=== PATIENT | male | born 1935 | race Caucasian/White ===

== ENCOUNTER 2024-12-27 23:51 | Inpatient (IN) | payer BC ==
[~2024-12-27] VITALS: Ht 167.6 cm; Wt 65.2 kg
--- NOTE | 2024-12-27 23:55 | Physician Documentation ---
History of Present Illness ~ Stated Complaint: STROKE Time Seen by MD: 23:54 HPI Patient presents to the emergency room with acute onset altered mental status and unsteady gait. Last time normal 2129. Patient with history of diabetes but has not been taking his medications. No blood thinners. Medication Reconciliation Allergies: Coded Allergies: No Known Allergies (Unverified , 12/27/24) Miscellaneous Medications Home Med List (No Home Medications), (Reported) Review of Systems ROS All review of systems negative except as per HPI Physical Exam Physical Exam General: Patient is awake, alert, oriented x 3. Anxious Head: Normocephalic and atraumatic. Eyes: Conjunctival normal. EOMI. PERRL. ENT: Mucous membranes moist. Neck: Supple, trachea is midline. Chest: Clear to auscultation bilaterally without rales, rhonchi, or wheezes. There is no accessory muscle use or retractions. Cardiac: RRR without murmurs, gallops, or rubs. Abd: Soft, nondistended, nontender, with normoactive bowel sounds. No guarding, rebound, or rigidity. Neuro: Cranial nerves II-XII grossly intact. No focal neuro deficits. Unsteady gait with positive Romberg Progress Results/Orders Results/Orders Orders - SYLVAIN COOLEY MD Electrocardiogram (12/27/24 23:56) Urinalysis, Cult If Indicated (12/27/24 23:56) * Vital Signs Routine* [id number] (12/27/24 23:56) * Blood Glucose Assessment * ONCE (12/27/24 23:56) * Npo Until Passed Bedside Swa (12/27/24 23:56) Nursing Swallow Screen (12/27/24 23:56) Ct Stroke Alert (12/28/24 00:00) Cta Neck/Head (12/28/24 00:30) Chest,Single View (12/28/24 00:00) Completed Orders - SYLVAIN COOLEY MD Cbc/Diff (12/27/24 23:56) BMP (12/27/24 23:56) Pt Inr (12/27/24 23:56) PTT (12/27/24 23:56) Type And Screen (12/27/24 23:56) Iohexol 350mg/Ml 100ml (Omnipaque 350mg/ (12/27/24 23:57) Ct Stroke Alert (12/28/24 00:00) Cta Neck/Head (12/28/24 00:30) Chest,Single View (12/28/24 00:00) Vital Signs 12/27/24 12/28/24 12/28/24 23:56 00:01 00:26 Temp 96.5 Pulse 62 67 Resp 17 14 B/P (MAP) 175/71 142/75 (97) Pulse Ox 98 98 97 O2 Delivery Room Air* O2 Flow Rate 0 0 FiO2 21 Laboratory Tests Test 12/27/24 23:53 White Blood Count 7.3 Red Blood Count 4.27 L Hemoglobin 14.3 Hematocrit 41.9 L Mean Corpuscular Volume 98.1 H Mean Corpuscular Hemoglobin 33.5 H Mean Corpuscular Hemoglobin Concent 34.1 Red Cell Distribution Width 13.5 Platelet Count 175 Mean Platelet Volume 8.4 Neutrophils (%) (Auto) 54.2 Lymphocytes (%) (Auto) 31.8 Monocytes (%) (Auto) 12.4 H Eosinophils (%) (Auto) 1.1 Basophils (%) (Auto) 0.5 Neutrophils # (Auto) 4.0 Lymphocytes # (Auto) 2.3 Monocytes # (Auto) 0.9 Eosinophils # (Auto) 0.1 Basophils # (Auto) 0.0 CBC Comment Prothrombin Time 10.5 INR International Normalized Ratio 1.0 Activated Partial Thromboplast Time 27 Coagulation Comments Sodium Level 141 Potassium Level 3.9 Chloride Level 104 Carbon Dioxide Level 27.6 Anion Gap 9 Blood Urea Nitrogen 19 H Creatinine 1.51 H Estimated GFR/1.73 m2 44 BUN/Creatinine Ratio 12.6 Glucose Level 229 H Calcium Level 9.1 Albumin 3.8 Chemistry Comments EKG/XRAY/CT/US/VASC/MRI EKG : Additional Comment EKG interpreted by myself shows time of 0017, rate 70, sinus rhythm, normal axis, no ST changes Medical Decision Making Findings Patient presented to the emergency room for evaluation of confusion and unsteady gait. Differentials include but are not limited to stroke, panic attack, metabolic encephalopathy, cardiac arrhythmia therefore emergent labs and imaging indicated. CT scans are reassuring and patient's symptoms have greatly improved. Tele neurology consulted recommends admission. No TNK Departure Admitted to Inpatient Unit: yes, to hospitalist Impression: Primary Impression: Possible stroke Condition: Guarded Referrals: NO PRIMARY CARE PROVIDER (PCP) Critical Care Note Total Time (mins): 45 Critical Care Note The very real possibility of a deterioration of this patient's condition required the highest level of my preparedness for sudden, emergent intervention. I provided critical care services, which included medication orders, frequent r eevaluations of the patient's condition and response to treatment, ordering and reviewing test results, and discussing the case with various consultants. Excludes time spent performing separately billable procedures. The critical care time associated with the care of the patient was 45 minutes not counting procedures Signature Scribe Signature: No scribe Attestation: The note accurately reflects work and decisions made by me.Sylvain Coolye MD 12/28/24 01:02 SYLVAIN COOLEY MD Dec 27, 2024 23:55
[2024-12-27] MEDS ORDERED: iohexol 350MG/ML 100ml bottle IV ONE (23:57)
[2024-12-28] VITALS (7 sets, daily range): BP systolic 115–134; BP diastolic 53–90; PULSE 60–66; RESP 12–16; TEMP 97.3–98.3; O2SAT 97–99
[2024-12-28] MEDS ORDERED: NO HOME MEDS (00:04)
[2024-12-28 00:10] LABS: ALBUMIN 3.8 G/DL (3.4-5.0); ANION GAP 9 (8-16); BLOOD UREA NITROGEN 19 MG/DL (7-18); BUN/CREATININE RATIO 12.6 (10.0-20.0); CALCIUM 9.1 MG/DL (8.5-10.1); CHLORIDE 104 MMOL/L (99-107); CREATININE 1.51 MG/DL (0.60-1.10); GLUCOSE 229 MG/DL (70-104); POTASSIUM 3.9 MMOL/L (3.5-5.1); SODIUM 141 MMOL/L (135-145); TOTAL CARBON DIOXIDE 27.6 MMOL/L (24-32); eCRCL 33 ML/MIN; eGFR 44 ML/MIN
[2024-12-28 00:15] LABS: APTT 27 SECONDS (22-32); PROTHROMBIN TIME 10.5 SECONDS (9.0-12.0)
[2024-12-28 00:17] LABS: BASOPHILS % (AUTO) 0.5 % (0-1); EOSINOPHILS # (AUTO) 0.1 X10'3 (0-0.9); EOSINOPHILS % (AUTO) 1.1 % (0-6); HEMATOCRIT 41.9 % (42.0-52.0); HEMOGLOBIN 14.3 g/dl (14.0-17.9); LYMPHOCYTES # (AUTO) 2.3 X10'3 (1.1-4.8); LYMPHOCYTES % (AUTO) 31.8 % (21-51); MEAN CORPUSCULAR HEMOGLOBIN 33.5 PG (27.0-31.0); MEAN CORPUSCULAR HGB CONC 34.1 g/dL (33.0-36.5); MEAN CORPUSCULAR VOLUME 98.1 FL (78-98); MEAN PLATELET VOLUME 8.4 FL (7.4-10.4); MONOCYTES # (AUTO) 0.9 X10'3 (0-0.9); MONOCYTES % (AUTO) 12.4 % (2-12); NEUTROPHILS % (AUTO) 54.2 % (42-75); PLATELET COUNT 175 X10'3 (140-440); RED BLOOD COUNT 4.27 X10'6 (4.70-6.10); RED CELL DISTRIBUTION WIDTH 13.5 % (11.5-14.5); WHITE BLOOD COUNT 7.3 X10'3 (4.5-11.0)
--- NOTE | 2024-12-28 00:28 | RADIOLOGY REPORT ---
EXAM: CT CT STROKE ALERT INDICATION: ams TECHNIQUE: CT of the head without intravenous contrast. Radiation Dose : 1. Head: CT Dose: CTDI volume is 55 mGy. Dose-length product is 1081 mGy*cm The dose indicators for CT are the volume Computed Tomography (CT) Dose Index (CTDIvol) and the Dose Length Product (DLP), and are measured in units of mGy and mGy-cm, respectively. These indicators are not patient dose, but values generated from the CT scanner acquisition factors. The report includes radiation exposure data for exposures received during this examination. COMPARISON: None FINDINGS: There is no evidence of acute intracranial hemorrhage, extra-axial collection, mass effect, midline s hift, herniation or hydrocephalus. The ventricles, sulci and cisterns are age appropriate. The chadwick-white differentiation is intact. Patchy periventricular and subcortical white matter hypoattenuation is nonspecific but may be related to small vessel ischemic disease. The visualized paranasal sinuses and mastoid air cells are clear. The surrounding soft tissues and osseous structures are unremarkable. IMPRESSION: No acute intracranial abnormality. If there is high clinical concern for acute infarct consider furth er evaluation with MRI.
--- NOTE | 2024-12-28 00:33 | RADIOLOGY REPORT ---
INDICATION: ams EXAM DATE: 12/28/2024 12:00 AM COMPARISON: None TECHNIQUE: CTA head without and with intravenous contrast. CTA neck with intravenous contrast. 3D image postprocessing was performed on a dedicated workstation and images were used for interpretation and reporting. RADIATION DOSE: CTDIvol: 50 mGy, DLP: 531 mGy*cm FINDINGS: CT head: There is no evidence of acute intracranial hemorrhage, extra-axial collection, mass effect, midline s hift, herniation or hydrocephalus. The ventricles, sulci and cisterns are age appropriate. The chadwick -white differentiation is intact. The visualized paranasal sinuses and mastoid air cells are clear. The surrounding soft tissues and osseous structures are unremarkable. CTA head: There is normal enhancement of the visualized distal internal carotid, anterior and middle cerebral a rteries. There is a normal anterior communicating artery complex. There are bilateral posterior com municating arteries. The vertebral, basilar, cerebellar and posterior cerebral arteries are within n ormal limits. The early parenchymal enhancement is grossly unremarkable. The visualized intracrania l venous structures are grossly unremarkable. CTA neck: The visualized thoracic aortic arch and proximal great vessels are unremarkable. The left common, in ternal and external carotid arteries are within normal limits. The right common, internal and blockman al carotid arteries are within normal limits. The cervical segments of the right and left vertebral arteries are within normal limits. The limited visualized lung apices are clear. The surrounding so ft tissues and osseous structures are otherwise unremarkable. IMPRESSION: No evidence of hemodynamically significant intracranial stenosis, proximal occlusion or aneurysm. No evidence of hemodynamically significant cervical stenosis or dissection. CAROTID STENOSIS REFERENCE Distal internal carotid artery diameter as the denominator for stenosis measurement: MILD = <50% stenosis. MODERATE = 50-69% stenosis. SEVERE = 70-89% stenosis. CRITICAL = 90-99% stenosis. OCCLUDED = 100% stenosis.
--- NOTE | 2024-12-28 00:36 | RADIOLOGY REPORT ---
CHEST RADIOGRAPH Indication: Stroke Alert Technique: Single frontal view of the chest was obtained Comparison: None FINDINGS: Lines and Tubes: None Lungs: Clear Pleura: No effusion. No pneumothorax. Cardiomediastinal contours: Unremarkable Bones: Unremarkable IMPRESSION: Clear lungs.
--- NOTE | 2024-12-28 00:39 | [facility]SULT REPORT ---
[facility] Procedure Note [facility] Procedure Note Consult [facility] Note # Demographics Consult Type: Acute Stroke Level 1 (0-4.5 hrs) Patient Location: Emergency Room First Name: WALYON Last Name: OTF Date of : 1935 Age: 89 Gender: Male Facility: [facility] Time of Initial Page (): 12/27/2024 23:54 Time of Return Call (): 12/27/2024 23:54 # HPI History: [id number] Patient is coming to ER for confusion and altered mental status and walking difficulty. Patient was watching TV at home after dinner and started feeling dizzy and was unsteady on his feet. H/O DM. # Scores Time of exam and NIHSS (): 12/28/2024 00:27 Level of Consciousness 1a: [0] = Alert; keenly responsive LOC Questions 1b: [0] = Answers both questions correctly LOC Commands 1c: [0] = Performs both tasks correctly Best Gaze 2: [0] = Normal Visual 3: [0] = No visual loss Facial Palsy 4: [0] = Normal symmetrical movements Motor Arm Left 5a: [0] = No drift Motor Arm Right 5b: [0] = No drift Motor Leg Left 6a: [0] = No drift Motor Leg Right 6b: [0] = No drift Limb Ataxia 7: [0] = Absent Sensory 8: [0] = Normal Best Language 9: [0] = No aphasia Dysarthria 10: [0] = Normal Extinction and Inattention 11: [0] = No abnormality NIHSS Total: 0 # Assessment Impression: - Vertigo - Ischemic Stroke (Acute) NIHSS is 0; differential include peripheral vs central etiology. Will need MRI brain to rule out stroke # Plan Thrombolytic/Intervention: NOT IV Thrombolysis or IA Intervention candidate Thrombolytic Exclusion: > 4.5 hours Intraarterial Exclusion: - no large vessel occlusion (LVO) Thrombolytic/Intraarterial Exclusion: - IV thrombolytic and IA intervention considered but not recommended as this patient's symptoms are not clinically consistent with an assumed diagnosis of stroke Target Blood Pressure: - SBP < 180 - SBP > 140 Labs: - comprehensive metabolic panel - CBC - urine drug screen - ua - ESR - hemoglobin A1c - lipid panel Imaging: (urgency: routine): - MRI Brain without contrast Diagnostic Test: - echo without bubble study Therapy/Evaluation: - PT/OT evaluation - NPO until swallow evaluation -If brain MRI is negative for stroke- consider godwin-hallpike maneuver Medication: - aspirin 81 mg PLUS clopidogrel (Plavix) 75 mg for 21 days, then monotherapy therafter - start statin with goal of LDL < 70 PRN meclizine Other: - If patient has any neurological deterioration please call me back immediately - I have discussed my recommendations with the referring provider - neurology referral as outpatient - would not pursue stroke work-up if MRI is negative - telemetry monitoring - permissive hypertension - LDL < 70 - will need event monitor or loop recorder as outpatient if atrial fibrillation not found as inpatient Disposition: admit # Demographics First Name: WAYLON Last Name: OTF Facility: [facility] Neuro Consult Order placed for: Yes JEFFERY WASHINGTON MD Dec 28, 2024 00:39
[2024-12-28 01:06] LABS: BILIRUBIN,URINE NEGATIVE (Neg); CLARITY,URINE CLEAR (Clear); COLOR,URINE YELLOW (Yellow); GLUCOSE, URINE 250 mg/dl (Neg); KETONES,URINE NEGATIVE (Neg); LEUKOCYTE ESTERASE ,URINE NEGATIVE (Neg); NITRITES, URINE NEGATIVE (Neg); OCCULT BLOOD,URINE NEGATIVE (Neg); PROTEIN,URINE NEGATIVE (Neg); UROBILINOGEN,URINE 0.2 E.U/dL (0.2-1.0)
[2024-12-28 01:07] LABS: UA COLLECTION TYPE NON-SPECIFIED
[2024-12-28] MEDS ORDERED: potassium Cl 40MEQ/1/2NS 520ml 520 ML IV PRN (01:35)
[2024-12-28] MEDS ORDERED: morphine 2 MG/ML inj. syringe IV PRN (01:35)
[2024-12-28] MEDS: PERFLUTREN PROTEIN-A MICROSPHR (Optison) 0.22 MG/ML 3ML VIAL IV ONE (01:35)
[2024-12-28] MEDS ORDERED: mag hydrox/Alum hydrox/simeth 30ml oral suspension PO PRN (01:35)
[2024-12-28] MEDS ORDERED: magnesium sulf-water 2g/50mL 50 ML IV PRN (01:35)
[2024-12-28] MEDS ORDERED: acetaminophen 325mg tablet PO PRN (01:35)
[2024-12-28] MEDS ORDERED: magnesium hydroxide 30ml (MOM) UD suspension PO PRN (01:35)
[2024-12-28] MEDS ORDERED: magnesium Cl slow-release 64mg tablet PO PRN (01:35)
[2024-12-28] MEDS ORDERED: HYDROcodone/acetaminophen 5mg/325mg tablet PO PRN (01:35)
[2024-12-28] MEDS ORDERED: potassium Cl 20 mEq SR tablet PO PRN ×2 (01:35)
[2024-12-28] MEDS ORDERED: magnesium sulf-water 4G/100mL 100 ML IV PRN (01:35)
--- NOTE | 2024-12-28 01:49 | HISTORY AND PHYSICAL-Residence ---
History & Physical Providers to CC Resident Creating Document: GEORGIE JACINTO, RES CC: ARNOLDO DENT MD ~ History of Present Illness Reason for Admit\Complaint: Dizziness and difficulty walking History of Present Illness An 89-year-old male with past medical history of type 2 diabetes mellitus was brought in by the EMS due to acute onset of confusion, wobbly and unable to walk. Patient states that he was watching TV after dinner and about after an hour he started feeling dizzy, informed his son. The son reported as the patient is started to behave weird and had confusion, was forgetful. Patient tried to walk and was about to fall. Patient states he had a soreness in his neck muscles but denies headache, nausea, vomitings, difficulty in vision or swallowing. Patient did not lose consciousness Allergies: Coded Allergies: No Known Allergies (Unverified , 12/27/24) Home Medications Home Medications Active Reported No Home Medications (Home Med List) Each Past Medical History Past Medical History Type 2 diabetes mellitus Past Surgical History Surgical History Comment Cholecystectomy Past Social History Social History Comment Patient lives at home with his son Primary care doctor is [facility] Drinks beer once in a while Does not smoke tobacco, illicit drugs or marijuana ROS ROS All other systems reviewed in full and negative except for the pertinent positives mentioned in the HPI Exam Vitals: Vital Signs Date Time Temp Pulse Resp B/P (MAP) Pulse Ox O2 Delivery O2 Flow Rate FiO2 12/28/24 00:26 67 14 142/75 (97) 97 0 12/28/24 00:01 Room Air* 21 12/27/24 23:56 96.5 General: General: Alert, awake, oriented, not in acute distress HEENT: PERRLA, EOMI, no icterus, pallor, lymphadenopathy, carotid bruit, very hard of hearing Respiratory system: Bilateral vesicular breath sounds heard, no adventitious breath sounds CVS: S1-S2 heard, no murmurs/rubs/gallop GI: A surgical scar present diagonally on the right hypochondrial region, a linear scar present in the lower abdomen, Soft, nontender, no organomegaly, no guarding/rigidity, bowel sounds present Neuro: Cranial nerves intact, power of upper and lower extremities 4/5, no sensory deficit, coordination intact, gait could not be elicited Extremities: No edema cyanosis clubbing/deformities Skin: Warm and dry Diagnostic Data Last Recorded Lab Results: 12/27/24 2353 12/27/24 2353 Diagnostic Data: Laboratory Tests Test 12/27/24 23:53 Prothrombin Time 10.5 SECONDS (9.0-12.0) INR International Normalized Ratio 1.0 INR Activated Partial Thromboplast Time 27 SECONDS (22-32) Coagulation Comments Advance Care Planning Advanced Care plannin - 30 Minutes (I spent 20 minutes discussing various resuscitative measures and the patient decided to be full code) Additional Plan Assessment: A 72-year-old male with a past medical history of type 2 diabetes mellitus was brought in by the EMS after he has son observed him with the acute onset of confusion, unable to walk and feeling wobbly in the last 2 hours. Patient is admitted for the evaluation management of CVA versus TIA versus vertigo. Plan: TIA versus vertigo CVA, rule out NIHSS: 0 CT head: small vessel ischemic disease. CTA head/neck: No evidence of hemodynamically significant intracranial stenosis, proximal occlusion or aneurysm. No evidence of hemodynamically significant cervical stenosis or dissection. Follow up with MRI brain, lipid panel, A1c, echo Patient given one dose of aspirin 325 mg, followed by aspirin 81 mg daily from tomorrow, clopidogrel 75 mg daily tomorrow (ASA plus clopidogrel: End date: 01/17/2025), atorvastatin 40 mg daily Permissive hypertension: SBP less than 180, greater than 140 for 48 hours Continue to monitor telemetry Aspiration precautions, NPO until swallow evaluation PT eval and treat Neuro check Tele neurology consulted and recommended as per above, appreciate recommendations Follow up with U tox Prerenal LUCILLE probably secondary to renal tubular stasis Elevated creatinine Continue IV fluids at 100 cc/hour Continue to monitor BMP Type 2 DM Follow up with A1c Low-dose sliding scale insulin Code status: Full code Diet: NPO until swallow eval DVT prophylaxis: Heparin 5000 subcu Disposition: Admit to neuro, follow up with echo, MRI brain, U tox, continue to monitor telemetry Georgie Jacinto MD Internal Medicine, PGY 1 Date of Service: Dec 28, 2024 Billing Provider: ARNOLDO DENT MD, SIVA, RES Dec 28, 2024 01:49
[2024-12-28] MEDS: normal saline 1000ml 1,000 ML IV SCH (02:29)
[2024-12-28 02:35] LABS: URINE AMPHETAMINE SCREEN NEGATIVE (Neg); URINE BARBITUATE SCREEN NEGATIVE (Neg); URINE BENZODIAZEPINES SCREEN NEGATIVE (Neg); URINE CANNABINOID SCREEN NEGATIVE (Neg); URINE COCAINE SCREEN NEGATIVE (Neg); URINE METHADONE SCREEN NEGATIVE (Neg); URINE OPIATE SCREEN NEGATIVE (Neg); URINE PHENCYCLIDINE SCREEN NEGATIVE (Neg)
[2024-12-28 07:21] LABS: HEMOGLOBIN A1C 7.6 % (4.5-6.2)
[2024-12-28] MEDS: clopidogrel 75mg tablet PO SCH (07:29)
[2024-12-28] MEDS: aspirin 81mg, enteric-coated 1 TAB TABLET.DR PO SCH (07:29)
[2024-12-28] MEDS: atorvastatin 20mg tablet PO SCH (07:29)
[2024-12-28 07:33] LABS: MAGNESIUM 2.2 MG/DL (1.5-2.4)
[2024-12-28] MEDS: docusate sod 100mg capsule PO SCH (07:33)
[2024-12-28 07:38] LABS: POTASSIUM 4.4 MMOL/L (3.5-5.1)
[2024-12-28] MEDS: K and/or MAG REPLACEMENT MC SCH (08:00)
--- NOTE | 2024-12-28 08:02 | ELECTROCARDIOGRAPH REPORT ---
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 Jacob Rocha Measurements Intervals Withams Rate: 70 P: 62 SD: 166 QRS: 67 QRSD: 90 T: 35 QT: 402 QTc: 434 Interpretive Statements Sinus rhythm Borderline T wave abnormalities Electronically Signed On 12-28-2024 11:29:[address] Jacob Rocha Please click the below link to view image of tracing.
--- NOTE | 2024-12-28 08:36 | RADIOLOGY REPORT ---
MRI BRAIN WITHOUT CONTRAST CLINICAL HISTORY: cva TECHNIQUE: Multiplanar, multisequence MR images of the brain without intravenous contrast. Comparison: CTA head 12/28/2024 FINDINGS: There is no restricted diffusion. There is age concordant parenchymal volume loss. There are mild chr onic small-vessel periventricular white matter ischemic changes. There is no evidence of hemorrhage, mass, mass effect or midline shift. There is no hydrocephalus or extra-axial fluid collection. The vi sualized intracranial vasculature demonstrates appropriate flow-voids. The sagittal midline structure s appear unremarkable. The craniocervical junction is within normal limits. The calvarium demonstrate s normal marrow signal. The paranasal sinuses and mastoid air cells are clear. IMPRESSION: 1. There is no acute intracranial process. HS:Y
[2024-12-28] MEDS ORDERED: dextrose 50%-water 50ml dispensing syringe IV PRN ×2 (08:50)
[2024-12-28] MEDS ORDERED: glucagon, human recombinant 1mg kit SUBCUT PRN (08:50)
[2024-12-28] MEDS ORDERED: DEXTROSE 15 GM of carb/4 tabs (each vial/BOTTLE has 4 tablets) PO PRN ×2 (08:50)
[2024-12-28] MEDS: INSULIN LISPRO 100 UNIT/ML INSULN.PEN MULTI-DOSE SQ SCH (12:00)
[2024-12-28 13:28] LABS: CHOLESTEROL 181 MG/DL (0-200); HDL CHOLESTEROL 36 MG/DL (35-60); LDL CHOLESTEROL 120 MG/DL (50-100); THYROID STIMULATING HORMONE 3.85 ulU/ml (0.34-4.50); TRIGLYCERIDES 152 MG/DL (20-135)
[2024-12-29] VITALS (7 sets, daily range): BP systolic 115–173; BP diastolic 52–91; PULSE 65–76; RESP 12–20; TEMP 97.5–97.8; O2SAT 97–99
[2024-12-29] MEDS: acetaminophen 325mg tablet PO PRN (02:34)
[2024-12-29] MEDS: ondansetron/PF 4mg/2ml inj IV PRN (03:05)
[2024-12-29 06:26] LABS: BASOPHILS % (AUTO) 0.3 % (0-1); EOSINOPHILS % (AUTO) 0.3 % (0-6); HEMATOCRIT 38.4 % (42.0-52.0); HEMOGLOBIN 12.9 g/dl (14.0-17.9); LYMPHOCYTES # (AUTO) 1.2 X10'3 (1.1-4.8); LYMPHOCYTES % (AUTO) 13.4 % (21-51); MEAN CORPUSCULAR HEMOGLOBIN 33.1 PG (27.0-31.0); MEAN CORPUSCULAR HGB CONC 33.6 g/dL (33.0-36.5); MEAN CORPUSCULAR VOLUME 98.5 FL (78-98); MEAN PLATELET VOLUME 8.8 FL (7.4-10.4); MONOCYTES # (AUTO) 0.8 X10'3 (0-0.9); MONOCYTES % (AUTO) 9.3 % (2-12); NEUTROPHILS # (AUTO) 6.8 X10'3 (1.8-7.7); NEUTROPHILS % (AUTO) 76.7 % (42-75); PLATELET COUNT 163 X10'3 (140-440); RED CELL DISTRIBUTION WIDTH 13.4 % (11.5-14.5); WHITE BLOOD COUNT 8.8 X10'3 (4.5-11.0)
[2024-12-29 06:49] LABS: ALBUMIN 3.1 G/DL (3.4-5.0); ANION GAP 8 (8-16); BLOOD UREA NITROGEN 16 MG/DL (7-18); CALCIUM 8.8 MG/DL (8.5-10.1); CHLORIDE 106 MMOL/L (99-107); CHOL/HDL RATIO 4.4 (0.00-4.99); CHOLESTEROL 169 MG/DL (0-200); CREATININE 1.23 MG/DL (0.60-1.10); GLUCOSE 175 MG/DL (70-104); HDL CHOLESTEROL 38 MG/DL (35-60); LDL CHOLESTEROL 111 MG/DL (50-100); MAGNESIUM 1.9 MG/DL (1.5-2.4); POTASSIUM 4.3 MMOL/L (3.5-5.1); SODIUM 141 MMOL/L (135-145); TOTAL CARBON DIOXIDE 26.8 MMOL/L (24-32); TRIGLYCERIDES 80 MG/DL (20-135); eCRCL 38 ML/MIN; eGFR 56 ML/MIN
[2024-12-29] MEDS ORDERED: atorvastatin 20mg tablet PO SCH (11:10)
[2024-12-29] MEDS: amLODIPine 5mg tablet PO SCH (11:10)
[2024-12-29] MEDS ORDERED: NOR5T PO (11:38)
[2024-12-29] MEDS ORDERED: ATOR40TA PO (11:40)
[2024-12-29] MEDS ORDERED: ASPI-1071 PO (14:21)
[2024-12-29] MEDS ORDERED: MECL-302 PO (14:21)
[2024-12-29] MEDS ORDERED: CLOP75TA34 PO (14:21)
--- NOTE | 2024-12-29 14:22 | DISCHARGE SUMMARY-Residence ---
Discharge Summary Providers to CC Resident Creating Document: YEHUDAANAY DIOR ~ Discharge Summary Admission Diagnosis: CVA/TIA under workup Hospital Course DATE OF ADMISSION: DATE OF DISCHARGE: Discharge Diagnosis\Comment: # acute metabolic encephalopathy, Ruled out CVA # LUCILLE-prerenal secondary to renal tubular stasis # type 2 DM Operations\Procedures: None Consultants: Ulices elkins tele neuro consultation Complications: None Condition on DC: Stable New Medications: Atorvastatin Calcium* (Lipitor*) 40 Mg Tablet 1 TAB PO DAILY for 30 Days, #30 TAB Meclizine HCl (Meclizine HCl) 25 Mg Tablet 1 TAB PO Q8H PRN for dizziness/vertigo for 30 Days, #90 TAB Amlodipine Besylate (Amlodipine Besylate) 5 Mg Tablet 5 MG PO DAILY for 30 Days, #30 TAB Aspirin (Ecotrin*) 81 Mg Tablet.dr 1 TAB PO DAILY for 30 Days, #30 TAB.SR Clopidogrel Bisulfate (Clopidogrel) 75 Mg Tablet 75 MG PO DAILY for 19 Days, #19 TAB stop after 01/17/25 Continued Medications: Home Med List (No Home Medications) Each Discharge Summary: A 72-year-old male with a past medical history of type 2 diabetes mellitus was brought in by the EMS after he has son observed him with the acute onset of confusion, unable to walk and feeling wobbly in the last 2 hours. Patient is admitted for the evaluation management of CVA versus TIA versus vertigo. Hospital course: Patient was admitted to the neurological floor for further investigation and management to ruled out CVA at the moment. Patient was given one time dose of aspirin 325 mg loading dose in ER followed by 81 mg daily along with clopidogrel 75 mg. Tele neurology consultation was requested, stated NIHSS score 0, needed to rule out for vertigo versus ischemic stroke with overdue for thrombolysis lactic exclusion time. 4.5 hours. We will maintain the patient's blood pressure with the permissive hypertension within 1st 24 hours followed by targeted blood pressure of SBP < 180 and >140. HGB A1c was 7.6 on 12/28/2024, LDL 111, TSH 3.85. Patient was monitor continuously with telemetry for the possible arrhythmia causing ischemic stroke, he was evaluated with PT/OT/swallow evaluation. Aspiration precautions and fall precautions were applied along with neuro check continuously in the neurological floor. Urine toxic screen are negative, RBS on admission was [address] without IV contrast on 12/28/2024 showed IMPRESSION: No acute intracranial abnormality. If there is high clinical concern for acute infarct consider further evaluation with MRI. Head and neck CTA with IV contrast on 12/28/2024 showed IMPRESSION: No evidence of hemodynamically significant intracranial stenosis, proximal occlusion or aneurysm. No evidence of hemodynamically significant cervical stenosis or dissection. Head MRI on 12/28/2024 showed There is no acute intracranial process. His 2D echocardiogram was done on 12/28/2024 stated that LVEF 65%, RVSP 43 mm Hg, LA normal, mild MR, TR, HI and no pericardial effusion. Today, all of his labs were reviewed WNL with WBC 8.8, hemoglobin 12.9, hematocrit 38.4, platelets 163, serum sodium 141, potassium 4.3, BUN 16, creatinine 1.23. All of his questions and concerns were addressed with the best knowledge of our team before discharge. All of the vitals were stable at the moment with temp 97.8 F, HI 69/minute, RR 18/minute, BP 127/91 mm Hg, pulse oximetry 99% on room air. On exam, General: Well alert, well oriented, not confused, not agitated, not in acute distress, well cooperated during the physical. HEENT: Conjunctive are pink, sclerae clear, no icterus, pupil is equal in both sides, reactive to light, no ear discharge, no pharyngeal erythema or an edema, mouth and lips are moist. Neck: Supple, no JVD, no lymphadenopathy and thyromegaly. Lungs:Equal air entry on both lungs, no additional sounds Heart: S1-S2 regular sinus rhythm and, regular rate, no gallops, no rubs, no murmurs Abdomen: No visible peristalsis, Bowel sounds present on auscultation, soft, nontender, no guarding, no rigidity Extremities: No obvious deformities, no pitting edema bilaterally, capillary refill intact, able to wiggle toes both sides, peripheral pulsations are intact on both sides CONFORMAL PAD FORMER: No focal neurological deficits, no motor and sensory weakness in all 4 extremities, could move all 4 extremities Musculoskeletal: No joint swelling, deformities, inflammations, and no scoliosis and back tenderness Skin: No active skin lesions and rashes Discharge summary: -return to ER for any emergency conditions including stroke-like symptoms example any new confusion, new focal neurologic deficits with tingling numbness and weakness in the extremities, facial asymmetry etc., passing out, progressive dizziness and lightheadedness etc. -set up and continue follow up with the PCP in 1-2 weeks after discharge for further management including lab checks (CBC CMP), BP control, medication adjustments, PT referral for the chronic neck pain with the imaging, Diabetes control w/ HbA1C 7.6 -recommended to visit [facility] center for the Vertigo evaluation and treatement with maneuver -medication compliance, report to PCP for any collateral effects of new medications amlodipine, atorvastatin etc. -compliance with blood pressure and blood glucose control -heart healthy diet with goal of LDL <70 to prevent further possible Stroke -stopped p.o. Plavix on 01/17/2025 Resident MD attestation: Patient was seen, examined and discussed with attending MD, Dr. Yoly BLACKMAN MD Internal Medicine Resident, PGY2 [facility] *Problems/Diagnosis: (1) Acute metabolic encephalopathy Status: Resolved Total Time Spent on D/C: > 30 Minutes Date of Service: Dec 29, 2024 Billing Provider: PATTI GEE MD, TIN, RES Dec 29, 2024 14:22
--- NOTE | 2024-12-30 17:01 | CARDIOLOGY REPORT ---
APPROVED REPORT EXAM: Comprehensive 2D, Doppler, and color-flow Echocardiogram. 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 124.1 cm/s AoV VTI 27.5 cm AO Peak GR. 6.2 mmHg AO Mean GR. 3 mmHg LVOT VTI 23.85 cm LVOT Peak Jorge. 96.5 cm/s DEMETRIUS(VTI)/BSA 2.72 cm2/m2 DEMETRIUS (VTI) 2.72 cm2 AI P 1/2 Time 508 ms Mitral Valve MV E Velocity 85.7 cm/s MV Peak Gr. 9 mmHg MV DECEL TIME 164 ms MV A Velocity 41.9 cm/s MV PHT 60 ms E/A Ratio 2.0 MVA (PHT) 3.67 cm2 MV AKib092.1 cm/s TDI Medial E' P. V 14.39 cm/s E/Medial E' 6.0 Tricuspid Valve TR P. Velocity 287 cm/s RAP ESTIMATE 10 mmHg TR Peak Gr. 33 mmHg RVSP 43 mmHg Pulmonary Vein S1 Velocity 39.5 cm/s D2 Velocity 56.3 cm/s PVa [id number] cm/s PVa [id number] msec LEFT VENTRICLE Normal LV size and wall thickness. Overall systolic function is normal. LVEF is 65%. RIGHT VENTRICLE RV is normal size and function. RVSP is estimated at 43 mmHG. ATRIA The left atrium size is normal. AORTIC VALVE Trileaflet AV appears sclerotic without stenosis. Mild to moderate insufficiency. MITRAL VALVE MV is thickened with no annular calcification or stenosis. Trace to mild mitral regurgitation. TRICUSPID VALVE The tricuspid valve is normal in structure. Trace tricuspid regurgitation. PULMONIC VALVE The pulmonary valve is normal in structure. Trace pulmonic regurgitation. GREAT VESSELS The aortic root is normal in size. The ascending aorta is normal in size. The IVC is normal in size a nd collapses >50% with inspiration. PERICARDIUM There is no pericardial effusion. Other Information Study Quality: Adequate Conclusion Normal LV size and wall thickness. Overall systolic function is normal. LVEF is 65%. RV is normal size and function. RVSP is estimated at 43 mmHG. The left atrium size is normal. Trileaflet AV appears sclerotic without stenosis. Mild to moderate insufficiency. MV is thickened with no annular calcification or stenosis. Trace to mild mitral regurgitation. The tricuspid valve is normal in structure. Trace tricuspid regurgitation. The pulmonary valve is normal in structure. Trace pulmonic regurgitation. There is no pericardial effusion.
[2025-01-01 05:19] LABS: HBSAG SCREEN Negative (Negative); HEP B CORE AB, IGM Negative (Negative); HEP B CORE AB, TOT Negative (Negative)
== END 2024-12-29 14:05 | disposition home or self-care (01) | DRG 70 ==
LOC: ER 23:51 → ED HOLD 12-28 01:20 → ORTHO 4S 12-28 04:15
PROVIDERS: ADMIT Internal Medicine Sleep Medicine; ATTEND Family Medicine
PROC: B3251ZZ Computerized Tomography (CT Scan) of Bilateral Common Carotid Arteries using Low Osmolar Contrast (ICD-10-PCS; principal; 2024-12-28)
PROC: B32G1ZZ Computerized Tomography (CT Scan) of Bilateral Vertebral Arteries using Low Osmolar Contrast (ICD-10-PCS; 2024-12-28)
PROC: B32R1ZZ Computerized Tomography (CT Scan) of Intracranial Arteries using Low Osmolar Contrast (ICD-10-PCS; 2024-12-28)
PROC: B3281ZZ Computerized Tomography (CT Scan) of Bilateral Internal Carotid Arteries using Low Osmolar Contrast (ICD-10-PCS; 2024-12-28)
DX: G93.41 Metabolic encephalopathy (principal); N17.0 Acute kidney failure with tubular necrosis; E11.9 Type 2 diabetes mellitus without complications; I10 Essential (primary) hypertension; Z79.899 Other long term (current) drug therapy; Z91.148 Patient's other noncompliance with medication regimen for other reason
CPT/HCPCS: 36415; 70450; 70496; 70498; 70551; 71045; 80048; 80061; 80305; 81003; 82948; 83036; 83605; 83735; 84132; 84443; 85025; 85610; 85651; 85730; 86704; 86705; 86885; 86900; 86901; 87040; 87081; 87340; 92508; 92616; 93005; 93306; 97116; 97162; 97530; 99291; G0378; J1815; J2405; J7030; Q9967